=== PATIENT | male | born 1990 | race Caucasian/White ===

== ENCOUNTER → 2016-10-22 | Outpatient (CLI) | payer OTHER ==
[~2016-10-22] MED LIST: BENADRYL ALLERG25 M4 PO; FLEXERIL10 MG PO; HYDROCODONE BIT1 T11 PO; LOMOTIL 0.025 M1 TA1 PO; MEDROL DOSEPAK4 MG PO; MOTRIN800 MG PO; NAPROSYN500 MG PO; NEXIUM40 MG PO; NEXIUM40 MG/PACK PO; PREDNICOT10 MG PO; VICODIN 5-3001 EACH PO; ZANTAC 150150 MG PO; ZOFRAN ODT4 MG SL
== END | disposition home or self-care (01) ==
LOC: RAD 13:07
DX: R10.9 Unspecified abdominal pain (principal)

== ENCOUNTER 2016-10-27 00:52 | Emergency (ER) | payer OTHER ==
[~2016-10-27] VITALS: Ht 185.4 cm; Wt 68.0 kg
[2016-10-27 01:44] LABS: BASO # 0.1 10*3/uL (0.0-0.1); BASO % 0.5 % (0.0-1.0); EOS # 0.4 10*3/uL (0.0-0.4); EOS % 4.4 % (1.0-4.0); HEMATOCRIT 41.7 % (42.0-52.0); HEMOGLOBIN 13.7 g/dl (14.0-18.0); LYMPH # 2.9 10*3/uL (1.3-4.4); LYMPH % 29.7 % (27.0-41.0); MEAN CELL VOLUME 98.3 fl (80.0-94.0); MEAN CORPUSCULAR HGB 32.3 pg (27.0-31.0); MEAN CORPUSCULAR HGB CONC 32.9 g/dl (33.0-37.0); MEAN PLATELET VOLUME 10.8 fl (9.6-12.3); MONO # 0.7 10*3/uL (0.1-1.0); MONO % 6.6 % (3.0-9.0); NEUT # 5.8 10*3/uL (2.3-7.9); NEUT % 58.6 % (47.0-73.0); PLATELET COUNT AUTOMATED 235 10*3/uL (130-400); RED BLOOD COUNT 4.24 10*6/uL (4.50-5.90); RED CELL DISTRI WIDTH 11.9 % (0-14.5); WHITE BLOOD COUNT 9.8 10*3/uL (4.8-10.8)
[2016-10-27 01:59] LABS: ALBUMIN 4.4 gm/dl (3.1-4.5); ALKALINE PHOSPHATASE 62 U/L (45-117); BUN 14 mg/dl (7-24); CHLORIDE 107 mmol/L (98-107); CREATININE 1.09 mg/dL (0.70-1.30); LIPASE 202 U/L (73-393); MAGNESIUM 2.5 mg/dL (1.5-2.1); SGOT/AST 13 IU/L (3-35); SGPT/ALT 16 U/L (12-78); SODIUM 141 mmol/L (136-145); TOTAL PROTEIN 7.6 gm/dL (6.4-8.2)
[2016-10-27 02:47] LABS: BILIRUBIN NEGATIVE (NEGATIVE); BLOOD NEGATIVE (NEGATIVE); CLARITY SL CLOUDY (CLEAR); COLOR YELLOW (YELLOW); GLUCOSE NEGATIVE (NEGATIVE); KETONE NEGATIVE (NEGATIVE); LEUKO ESTERASE NEGATIVE (NEGATIVE); NITRITE NEGATIVE (NEGATIVE); PH 7.5 (5.0-9.0); SPECIFIC GRAVITY 1.015 (1.005-1.030); UROBILINOGEN 0.2 E.U./dl (0.2-1.0)
[2016-10-27 02:56] LABS: BACTERIA 2+; EPITHELIAL CELLS 0-2
[2016-10-27] MEDS ORDERED: KEFLEX500 M1 PO (03:07)
== END 2016-10-27 04:06 | disposition home or self-care (01) ==
LOC: ED 00:52
PROVIDERS: Emergency Medicine Emergency Medical Services
DX: R82.71 Bacteriuria (principal); R10.30 Lower abdominal pain, unspecified; Z98.890 Other specified postprocedural states; Z79.899 Other long term (current) drug therapy; Z88.6 Allergy status to analgesic agent; Z88.1 Allergy status to other antibiotic agents; Z88.0 Allergy status to penicillin

== ENCOUNTER → 2017-04-18 | Outpatient (CLI) | payer OTHER ==
[~2017-04-18] MED LIST changes: +KEFLEX500 M1 PO
== END | disposition home or self-care (01) ==
LOC: RAD 11:42
DX: M54.6 Pain in thoracic spine (principal)

== ENCOUNTER → 2017-06-29 | Outpatient (CLI) | payer OTHER | LOC: US 06-16 10:30 | DX: R10.9 Unspecified abdominal pain (principal) ==

== ENCOUNTER 2018-07-13 20:28 | Emergency (ER) | payer OTHER ==
[~2018-07-13] VITALS: Ht 185.4 cm; Wt 65.8 kg
[~2018-07-13 20:28] MED LIST changes: +DICYCLOMINE HCL10 MG PO; +PEPCID20 MG PO; +Zofran4 MG PO
[2018-07-13] MEDS ORDERED: ZYRTEC10 MG PO (20:42)
== END 2018-07-13 23:34 | disposition home or self-care (01) ==
LOC: ED 20:28
DX: S62.644A Nondisplaced fracture of proximal phalanx of right ring finger, initial encounter for closed fracture (principal); Z79.899 Other long term (current) drug therapy; Z88.8 Allergy status to other drugs, medicaments and biological substances; W54.1XXA Struck by dog, initial encounter; Y93.89 Activity, other specified; Y92.89 Other specified places as the place of occurrence of the external cause; Y99.8 Other external cause status

== ENCOUNTER 2020-07-01 19:15 | Emergency (ER) | payer OTHER ==
[~2020-07-01] VITALS: Ht 185.4 cm; Wt 70.3 kg
[~2020-07-01 19:15] MED LIST changes: +ZYRTEC10 MG PO
[2020-07-01 19:34] LABS: BILIRUBIN Negative (Negative); BLOOD Negative (Negative); CLARITY Clear (Clear); COLOR Yellow (Yellow); GLUCOSE Negative (Negative); KETONE Trace (Negative); LEUKO ESTERASE Negative (Negative); NITRITE Negative (Negative); PH 5.5 (4.5-8.0)
[2020-07-01 19:55] LABS: HYALINE CAST 0-2; MUCOUS 1+; RBC 0-2 rbc/hpf (0-2)
[2020-07-01 19:56] LABS: BACTERIA TRACE; FINE GRANULAR CAST 0-2
[2020-07-01 20:00] LABS: BASO % 0.6 % (0.0-1.0); EOS # 0.4 10*3/uL (0.0-0.4); HEMATOCRIT 39.4 % (42.0-52.0); LYMPH # 2.5 10*3/uL (1.3-4.4); LYMPH % 34.8 % (27.0-41.0); MEAN CELL VOLUME 98.3 fl (80.0-94.0); MEAN CORPUSCULAR HGB 32.4 pg (27.0-31.0); MEAN PLATELET VOLUME 10.4 fl (9.6-12.3); MONO # 0.6 10*3/uL (0.1-1.0); MONO % 8.2 % (3.0-9.0); NEUT # 3.7 10*3/uL (2.3-7.9); NEUT % 51.3 % (47.0-73.0); PLATELET COUNT AUTOMATED 233 10*3/uL (130-400); RED BLOOD COUNT 4.01 10*6/uL (4.50-5.90); RED CELL DISTRI WIDTH 11.9 % (0-14.5); WHITE BLOOD COUNT 7.2 10*3/uL (4.8-10.8)
[2020-07-01 20:17] LABS: ALBUMIN 3.9 gm/dl (3.1-4.5); ALKALINE PHOSPHATASE 59 U/L (45-117); BUN 14 mg/dl (7-24); CHLORIDE 110 mmol/L (98-107); CREATININE 1.12 mg/dL (0.70-1.30); LIPASE 123 U/L (73-393); SGOT/AST 13 IU/L (3-35); SGPT/ALT 15 U/L (12-78); SODIUM 141 mmol/L (136-145); TOTAL PROTEIN 7.4 gm/dL (6.4-8.2)
== END 2020-07-01 22:20 | disposition home or self-care (01) ==
LOC: ED 19:15
PROVIDERS: Physician Assistant
DX: R10.9 Unspecified abdominal pain (principal); Z98.890 Other specified postprocedural states; Z79.899 Other long term (current) drug therapy

== ENCOUNTER 2021-07-07 16:07 | Emergency (ER) | payer OTHER ==
[~2021-07-07] VITALS: Ht 185.4 cm; Wt 70.3 kg
[2021-07-07 18:42] LABS: BILIRUBIN Negative (Negative); BLOOD Negative (Negative); CLARITY Clear (Clear); COLOR Yellow (Yellow); GLUCOSE Negative (Negative); KETONE 3+ (Negative); LEUKO ESTERASE Negative (Negative); NITRITE Negative (Negative); PH 6.5 (4.5-8.0); SPECIFIC GRAVITY >= 1.030 (1.001-1.030)
[2021-07-07 19:05] LABS: BACTERIA 2+; EPITHELIAL CELLS 0-2; MUCOUS 2+; YEAST TRACE
[2021-07-07 19:39] LABS: BASO % 0.3 % (0.0-1.0); EOS % 0.3 % (1.0-4.0); HEMATOCRIT 39.3 % (42.0-52.0); LYMPH # 0.2 10*3/uL (1.3-4.4); LYMPH % 3.5 % (27.0-41.0); MEAN CELL VOLUME 95.4 fl (80.0-94.0); MEAN CORPUSCULAR HGB 32.3 pg (27.0-31.0); MEAN CORPUSCULAR HGB CONC 33.8 g/dl (33.0-37.0); MONO # 0.6 10*3/uL (0.1-1.0); MONO % 9.2 % (3.0-9.0); NEUT # 5.5 10*3/uL (2.3-7.9); NEUT % 86.4 % (47.0-73.0); PLATELET COUNT AUTOMATED 174 10*3/uL (130-400); RED BLOOD COUNT 4.12 10*6/uL (4.50-5.90); RED CELL DISTRI WIDTH 11.7 % (0-14.5); WHITE BLOOD COUNT 6.3 10*3/uL (4.8-10.8)
[2021-07-07 19:56] LABS: ALKALINE PHOSPHATASE 57 U/L (45-117); BUN 13 mg/dl (7-24); CHLORIDE 109 mmol/L (98-107); CPK 118 U/L (39-308); CREATININE 0.97 mg/dL (0.70-1.30); LIPASE 125 U/L (73-393); POTASSIUM 3.8 mmol/L (3.5-5.1); SGOT/AST 16 IU/L (3-35); SGPT/ALT 25 U/L (12-78); SODIUM 140 mmol/L (136-145); TOTAL PROTEIN 7.2 gm/dL (6.4-8.2)
[2021-07-07 20:00] LABS: URINE AMPHETAMINES < 1000 (1000ng/ml); URINE BARBITURATES < 200 (200ng/ml); URINE BENZODIAZEPINES < 200 (200ng/ml); URINE CANNABINOIDS (THC) > 50 (50ng/ml); URINE COCAINE < 300 (300ng/ml); URINE METHADONE < 300 (300ng/ml); URINE OPIATES < 300 (300ng/ml)
[2021-07-07 20:01] LABS: URINE PHENCYCLIDINE < 25 (25ng/ml)
[2021-07-07] MEDS ORDERED: Motrin,Rufen800 MG PO (20:52)
== END 2021-07-07 21:05 | disposition home or self-care (01) ==
LOC: ED 16:07
PROVIDERS: Physician Assistant
DX: S39.012A Strain of muscle, fascia and tendon of lower back, initial encounter (principal); Z20.822 Contact with and (suspected) exposure to COVID-19; E86.0 Dehydration; Z79.899 Other long term (current) drug therapy; Z88.6 Allergy status to analgesic agent; Z88.8 Allergy status to other drugs, medicaments and biological substances; X50.0XXA Overexertion from strenuous movement or load, initial encounter; Y93.89 Activity, other specified; Y92.69 Other specified industrial and construction area as the place of occurrence of the external cause; Y99.9 Unspecified external cause status

== ENCOUNTER 2024-11-08 09:08 | Emergency (ER) | payer OTHER ==
[~2024-11-08] VITALS: Ht 182.8 cm; Wt 64.9 kg
[~2024-11-08 09:08] MED LIST changes: +Motrin,Rufen800 MG PO
[2024-11-08] MEDS ORDERED: SODIUM CHLORIDE 0.9% 500 ML IV ONE (10:05)
[2024-11-08 10:15] LABS: BASO # 0.0 10*3/uL (0.0-0.1); BASO % 0.3 % (0.0-1.0); EOS # 0.1 10*3/uL (0.0-0.4); EOS % 1.1 % (1.0-4.0); MEAN CELL VOLUME 98.4 fl (80.0-94.0); MEAN CORPUSCULAR HGB 32.0 pg (27.0-31.0); MEAN PLATELET VOLUME 10.0 fl (9.6-12.3); MONO # 0.6 10*3/uL (0.1-1.0); MONO % 5.4 % (3.0-9.0); NEUT # 9.2 10*3/uL (2.3-7.9); NEUT % 78.4 % (47.0-73.0); NUCLEATED RED BLOOD CELL 0.0 % (0.0-0.0); NUCLEATED RED BLOOD CELL 0.0 10*3/uL (0.0-0.0); PLATELET COUNT AUTOMATED 238 10*3/uL (130-400); RED CELL DISTRI WIDTH 11.9 % (0-14.5)
[2024-11-08 10:35] LABS: BUN 12 mg/dl (9-23)
== END 2024-11-08 13:23 | disposition home or self-care (01) ==
LOC: ED 09:08
PROVIDERS: Student in an Organized Health Care Education/Training Program
DX: R55 Syncope and collapse (principal); Z88.8 Allergy status to other drugs, medicaments and biological substances; Z79.899 Other long term (current) drug therapy; Z98.890 Other specified postprocedural states